=== PATIENT | female | born 1960 | race Caucasian/White ===

== ENCOUNTER 2018-06-21 07:14 | Emergency (ER) | payer MEDICAID ==
[~2018-06-21] VITALS: Ht 165.1 cm; Wt 81.7 kg
[~2018-06-21 07:14] MED LIST: ALPR.5 PO; CYCL10 PO; HYDCHL25 PO; HYDROCODONE/ACETAMIN; IBUP600 PO; META800 PO; SERT50 PO; Zofran Odt4 MG PO
[2018-06-21] MEDS ORDERED: META800 PO (10:00)
== END 2018-06-21 10:12 | disposition home or self-care (01) ==
LOC: ER 07:14
DX: M54.6 Pain in thoracic spine (principal); I10 Essential (primary) hypertension; F17.210 Nicotine dependence, cigarettes, uncomplicated; Z88.5 Allergy status to narcotic agent; W19.XXXA Unspecified fall, initial encounter
CPT/HCPCS: 70450; 72070; 82947; 96372; 99284-25; J1885

== ENCOUNTER 2024-12-06 14:19 | Inpatient (IN) | payer OTHER ==
[~2024-12-06] VITALS: Ht 162.6 cm; Wt 59.6 kg
[2024-12-06] VITALS (11 sets, daily range): BP systolic 96–133; BP diastolic 43–60
[~2024-12-06 14:19] MED LIST changes: +Atropine Sulfate 0.1 MG/ML 10ML SYR IV ONE; -BUPRENORPHINE HC8 MG SL; +EPINEPhrine HCl 1 MG/ML 1ML Amp IV ONE; -LEVOFLOXACIN PO; -PRENATAL TABLE1 EAC2 PO; -SUBOXONE 8 MG-1 EACH SL; -VISBIOME 112.51 EACH PO
[2024-12-06] MEDS ORDERED: Nitroglycerin 2 MG/20 ML BTL ONE (15:25)
[2024-12-06] MEDS ORDERED: Verapamil HCL 2.5 MG/ML 2ML Injection ONE (15:25)
[2024-12-06] MEDS ORDERED: NS 1,000 ML IV ONE ×3 (15:25→19:08)
[2024-12-06] MEDS ORDERED: Heparin Sodium 1000 Units/ML 10ML MDV ONE ×2 (15:25→15:34)
[2024-12-06] MEDS ORDERED: NS 250 ML IV ONE (15:25)
[2024-12-06] MEDS ORDERED: FentaNYL Citrate 50 MCG/ML 2 ML Injection ONE (15:27)
[2024-12-06] MEDS ORDERED: Midazolam HCl 1MG / ML 2ML Vial ONE (15:28)
[2024-12-06] MEDS ORDERED: Tirofiban HCL Monohydrate 3.75 MG/15 ML Vial ONE (15:34)
[2024-12-06] MEDS ORDERED: Phenylephrine HCl 100 MCG/ML-NS 10MLSYR (1MG/10ML) ONE (15:34)
[2024-12-06] MEDS ORDERED: Atropine Sulfate 0.1 MG/ML 10ML SYR ONE (15:34)
[2024-12-06 15:44] LABS: Albumin, Blood 3.2 g/dL (3.4-5.0); Albumin/Globulin Ratio 0.7 (0.8-1.8); Bilirubin, Total 2.5 mg/dL (0.1-1.0); Calcium, Blood 9.1 mg/dL (8.5-10.1); Creatinine, Blood 0.81 mg/dL (0.40-1.00); Globulin, Blood 4.5 g/dL (2.2-4.0); Potassium, Blood 4.7 mmol/L (3.5-5.5); Total Protein, Blood 7.7 g/dL (6.4-8.2)
[2024-12-06 15:45] LABS: BASOPHILS ABSOLUTE AUTO 0.06 K/mm3 (0.00-0.23); BASOPHILS PERCENT AUTO 0 % (0-2); EOSINOPHILS PERCENT AUTO 0 % (0-6); Hematocrit 32.9 % (33.0-51.0); IMMATURE GRAN ABSOLUTE AUTO 0.34 K/mm3 (0.00-0.10); IMMATURE GRAN PERCENT AUTO 2 % (0-1); LYMPHOCYTES ABSOLUTE AUTO 0.98 K/mm3 (0.84-5.20); LYMPHOCYTES PERCENT AUTO 5 % (21-46); MONOCYTES ABSOLUTE AUTO 0.44 K/mm3 (0.16-1.47); MONOCYTES PERCENT AUTO 2 % (4-13); Mean Corpuscular HGB 33.6 pg (26.0-34.0); Mean Corpuscular Volume 92 fL (80-100); Mean Platelet Volume 9.9 fL (9.1-12.4); NEUTROPHILS ABSOLUTE AUTO 17.78 K/mm3 (1.96-9.15); NEUTROPHILS PERCENT AUTO 91 % (41-73); Platelet Count 201 K/mm3 (150-400); RDW Coefficient Variation 13.7 % (11.7-14.2); RDW Standard Deviation 44.6 fL (35.1-46.3); Red Blood Cell Count 3.57 M/mm3 (3.80-5.20)
[2024-12-06 15:46] LABS: Mean Corpuscular HGB Conc 36.5 g/dL (31.5-36.5)
[2024-12-06] MEDS ORDERED: CefTRIAXone Sodium 1,000 MG in NS 50 ML IV ONE (15:55)
[2024-12-06] MEDS ORDERED: Acetaminophen 325 MG TABLET PO ONE (16:45)
[2024-12-06 16:50] LABS: International Normalized Ratio 1.22; Prothrombin Time Results 12.9 Sec (9.7-11.5)
[2024-12-06 17:10] LABS: Source, Urine Straight Cath
[2024-12-06 17:26] LABS: Appearance, Urine Hazy (Clear); Bilirubin, Urine Neg (Neg); Blood, Urine 1+ (Neg); Color, Urine Amber (P-Yellow); Glucose Qualitative, Urine Neg (Neg); Ketones, Urine Neg (Neg); Leukocyte Esterase, Urine 1+ (Neg); Nitrite, Urine Pos (Neg); Protein, Urine 2+ (Neg); Specific Gravity, Urine 1.015 (1.003-1.022); Urobilinogen, Urine 3+ (Normal)
[2024-12-06 17:32] LABS: Influenza A, PCR NEGATIVE (NEGATIVE); Influenza B, PCR NEGATIVE (NEGATIVE); Resp Syncytial Virus, PCR NEGATIVE (NEGATIVE); SARS-Cov-2 (COVID-19) PCR, MMC NEGATIVE (NEGATIVE)
[2024-12-06 17:36] LABS: Red Blood Cells, Urine 0-2 /hpf (0-2)
[2024-12-06 17:37] LABS: Bacteria Many /hpf; Squamous Epithelial Cells Rare /hpf (Few)
[2024-12-06] MEDS ORDERED: FLU VACC TS2024-25(6MOS UP)/PF 45 MCG/0.5 ML SYRINGE IM SCH (18:20)
[2024-12-06] MEDS ORDERED: LevoFLOXacin 750 MG/D5W 150ML 150 ML IV SCH (19:00)
[2024-12-06] MEDS ORDERED: Magnesium Sulf 2 GM/Water 50ML 50 ML IV ONE (19:15)
[2024-12-06] MEDS ORDERED: NS 1,000 ML IV SCH (19:20)
[2024-12-06 19:30] LABS: U Amphetamine Screen Not Detected; U Barbituate Screen Not Detected; U Benzodiazapine Screen Not Detected; U Buprenorphine Screen DETECTED; U Cannabinoids Screen Not Detected; U Cocaine Screen Not Detected; U Methadone Screen Not Detected; U Methamphetamine Screen Not Detected; U Opiates Screen Not Detected; U Oxycodone Screen Not Detected; U Phencyclidine Screen Not Detected
[2024-12-06] MEDS ORDERED: Dopamine/Dextrose 250 ML IV SCH (19:50)
[2024-12-06 20:53] LABS: Adenovirus Not Detected (NOT DETECT); Bordetella pertussis Not Detected (NOT DETECT); Chlamydophila pneumoniae Not Detected (NOT DETECT); Coronavirus 229E Not Detected (NOT DETECT); Coronavirus HKU1 Not Detected (NOT DETECT); Coronavirus NL63 Not Detected (NOT DETECT); Coronavirus OC43 Not Detected (NOT DETECT); Human Metapneumovirus Not Detected (NOT DETECT); Human Rhinovirus/Enterovirus Detected (NOT DETECT); Influenza A/2009-H1 Not Detected (NOT DETECT); Influenza A/H1 Not Detected (NOT DETECT); Influenza A/H3 Not Detected (NOT DETECT); Influenza B Not Detected (NOT DETECT); Mycoplasma pneumoniae Not Detected (NOT DETECT); Parainfluenza Virus 1 Not Detected (NOT DETECT); Parainfluenza Virus 2 Not Detected (NOT DETECT); Parainfluenza Virus 3 Not Detected (NOT DETECT); Parainfluenza Virus 4 Not Detected (NOT DETECT); Respiratory Syncytial Virus Not Detected (NOT DETECT); SARS-Cov-2 (COVID-19), BioFire Not Detected (NOT DETECT)
[2024-12-06] MEDS ORDERED: Lactobacil 2-S.Thermo-Bifido 1 1 Cap PO SCH (21:00)
[2024-12-06] MEDS ORDERED: buprenorphine HCL 8 MG TAB.SUBL SL ONE (21:05)
[2024-12-06] MEDS ORDERED: BUPRENORPHINE HC8 MG SL (21:18)
[2024-12-06 21:27] LABS: Base Excess Venous -1.6 mmol/L; Bicarbonate Venous 23.6 mmol/L (24.0-30.0); PCO2 Venous 33.1 mmHg (38-42); pH Blood Venous 7.44 (7.34-7.37)
--- NOTE | 2024-12-06 21:42 | NUR ---
ARRIVAL TO ICU: PT ARRIVED TO ICU BED 12 FROM ER AT 2041 VIA GURNEY. PT ALERT AND ORIENTED ALTHOUGH FALLS ASLEEP DURING CONVERSATION AND IS MILDLY CONFUSED AT TIMES. APPEARS TO BE REDIRECTABLE AT THIS TIME. PT ON 5L NC WITH SPO2 90. ENDORSES SOB WITH MOVEMENT. LUNGS COARSE T/O. RR 16-22. TRAFFIC RATE COMPUTER IN PLACE, SB WITH HR 50'S, OCCASIONALLY DROPS LOW 39 AT TIMES. DOPAMINE AT 5 MCG/KG/MIN TO MAINTAIN MAP >65. SEE FLOWSHEET FOR TITRATIONS. ENDORSES CHEST PAIN AT TIMES, PROVIDER AWARE. PT HAVING MODERATE AMOUNT OF GREEN EMESIS UPON ARRIVAL TO THE UNIT. HAS NOT YET VOIDED. NO BM. PIV TO RFA AND GISELLE. BED LOW AND LOCKED, CALL LIGHT IN REACH.
[2024-12-06 21:50] LABS: Bun/Creatinine Ratio 25.3 (12.0-20.0); Calcium, Blood 8.8 mg/dL (8.5-10.1); Creatinine, Blood 0.87 mg/dL (0.40-1.00); Potassium, Blood 3.6 mmol/L (3.5-5.5)
[2024-12-06] MEDS ORDERED: Metoclopramide HCl 5MG / ML 2ML Vial IV PRN (21:55)
[2024-12-07] VITALS (76 sets, daily range): BP systolic 87–162; BP diastolic 46–99
--- NOTE | 2024-12-07 04:09 | NUR ---
UPDATE: DR. WINSTON AT BEDSIDE FOR CENTRAL LINE INSERTION. PT TOLERATED WELL. CENTRAL LINE TO RIJ PATENT, X-RAY CONFIRMATION BY DR. WINSTON, OKAY TO USE. PT HAVING INCREASED ECTOPY, DR. WINSTON AWARE. PT C/O CHEST PAIN AND FEELING LIKE HER "HEART IS GOING TO BEAT OUT OF HER CHEST". DR. WINSTON GAVE VERBAL ORDER TO CHANGE DOPAMINE TO LEVOPHED. AWAITING LEVOPHED FROM PHARMACY.
[2024-12-07 04:14] LABS: Albumin, Blood 2.8 g/dL (3.4-5.0); Albumin/Globulin Ratio 0.7 (0.8-1.8); Bilirubin, Total 1.7 mg/dL (0.1-1.0); Bun/Creatinine Ratio 31.9 (12.0-20.0); Calcium, Blood 8.9 mg/dL (8.5-10.1); Creatinine, Blood 0.69 mg/dL (0.40-1.00); Globulin, Blood 4.2 g/dL (2.2-4.0); Magnesium, Blood 2.3 mg/dL (1.6-2.4); Potassium, Blood 4.2 mmol/L (3.5-5.5)
[2024-12-07 04:15] LABS: Hematocrit 31.4 % (33.0-51.0); Hemoglobin 10.9 g/dL (11.5-16.0); Mean Corpuscular HGB 31.6 pg (26.0-34.0); Mean Corpuscular HGB Conc 34.7 g/dL (31.5-36.5); Mean Corpuscular Volume 91 fL (80-100); Mean Platelet Volume 9.7 fL (9.1-12.4); Platelet Count 189 K/mm3 (150-400); RDW Coefficient Variation 13.3 % (11.7-14.2); RDW Standard Deviation 44.5 fL (35.1-46.3); Red Blood Cell Count 3.45 M/mm3 (3.80-5.20); White Blood Cell Count 22.47 K/mm3 (4.00-11.30)
[2024-12-07 04:21] LABS: BAND PERCENT MAN 37 % (0-8); BASOPHILS PERCENT MAN 0 % (0-2); EOSINOPHILS PERCENT MAN 0 % (0-6); LYMPHOCYTES ABSOLUTE MAN 0.44 K/mm3 (0.84-5.20); LYMPHOCYTES PERCENT MAN 2 % (21-46); METAMYELOCYTE ABSOLUTE MAN 0.22 K/mm3 (0.00-0.00); METAMYELOCYTE PERCENT MAN 1 % (0-0); MONOCYTES ABSOLUTE MAN 0.67 K/mm3 (0.16-1.47); MONOCYTES PERCENT MAN 3 % (4-13); NEUTROPHILS ABSOLUTE MAN 21.12 K/mm3 (1.96-9.15); SEG NEUTROPHILS PERCENT MAN 57 % (41-73); TOTAL CELLS COUNTED 100
[2024-12-07] MEDS ORDERED: buprenorphine HCL 8 MG TAB.SUBL SL ONE (05:00)
[2024-12-07] MEDS ORDERED: Atropine Sulfate 0.1 MG/ML 10ML SYR IV ONE (05:15)
--- NOTE | 2024-12-07 05:45 | NUR ---
SHIFT SUMMARY: PT ALERT AND ORIENTED ALTHOUGH CONFUSED AT TIMES. PT REPEATEDLY STATING SHE WANTS TO LEAVE. PT EDUCATED ON WHY SHE NEEDS TO BE HERE. AGREEABLE TO STAYING AT THIS TIME. PT VERY ANXIOUS AT TIMES. REMAINS ON 5L NC WITH SPO2 88-94%. DENIES SOB. DOPAMINE TURNED OFF AND LEVOPHED STARTED TO MAINTAIN MAP >65. SEE FLOWSHEET FOR TITRATIONS. PT STATES SHE FEELS LIKE HER HEART IS GOING TO BEAT OUT OF HER CHEST. HOSPITALIST AWARE. PT GIVEN ATROPINE FOR HR IN THE 30'S. DISCHARGE RN IN PLACE, SR/SB/GALLO WITH HR RANGING FROM 32-100. PT ABLE TO VOID THIS AM ON THE COMMODE. VOIDING DARK URINE. NO BM THIS SHIFT. CENTRAL LINE TO [facility] PATENT. PT TOLERATING ICE CHIPS. NO C/O N/V THIS AM. BED LOW AND LOCKED.
--- NOTE | 2024-12-07 07:00 | NUR ---
ASSUMPTION OF CARE PT RECEIVING LEVOPHED 5MCG/MIN. SHE IS ON 5L NC WITH SPO2 >93%. PT WAKENS EASILY TO VERBAL STIMULI. SINUS ON MONITOR WITH RATE BETWEEN 50S-70S. BED IN LOW POSITION, CALL LIGHT WITHIN REACH.
[2024-12-07] MEDS ORDERED: Enoxaparin 40 MG/0.4 ML SYR SC SCH (09:00)
[2024-12-07] MEDS ORDERED: SUBOXONE 8 MG-1 EACH SL (11:57)
[2024-12-07] MEDS ORDERED: PRENATAL TABLE1 EAC2 PO (12:01)
--- NOTE | 2024-12-07 13:55 | NUR ---
UPDATE LEVOPHED OFF SINCE 924. MAP HAS REMAINED >65. HR VARIES BETWEEN 50S-70S. SHE DENIES CP. SHE REMAINS ALERT AND ORIENTED. SHE PARTICIPATES IN CONVERSATION AND ASSISTS WITH ADLS ABLE. SHE IS ON 5L NC WITH SPO2 >93%. OCCASIONAL COUGH. FINE CRACKLES WITH EXP WHEEZE. SHE DENIES SOB. SHE HAS TOLERATED PO FLUIDS AND MEALS WELL. SHE HAS USED THE BSC TWICE TO VOID WITH 800ML OUTPUT . URINE IS DARK RUPERT WITH FOUL ODOR. AFEBRILE THROUGHOUT THE SHIFT. RIJ CENTRAL LINE REMOVED, DRESSING C/D/I. PT STS SHE TAKES SUBOXONE AND LEXAPRO AT HOME. HOME MED LIST VERIFIED AND HOSPITALIST NOTIFIED. BED IN LOW POSITION, PT LYING SUPINE, CALL LIGHT WTIHIN REACH.
[2024-12-07] MEDS ORDERED: LevoFLOXacin 750 MG Tab PO SCH (16:00)
--- NOTE | 2024-12-07 17:42 | NUR ---
SHIFT SUMMARY PT REMAINS ALERT AND ORIENTED. PT ANXIOUS AT TIMES. EXPRESSES CONCERN REGARDING HER PETS, GROWN CHILDREN AND HER CAR. PT STS SHE WOULD LIKE TO LEAVE THE HOSPITAL TONIGHT. ENCOURAGED TO STAY AND PT AGREEABLE AT THIS TIME. PT ASKS ABOUT SUBOXONE AND LEXAPRO. PER PROVIDER, MAY RESTART MEDS TOMORROW IF BP STABLE OVERNIGHT. PT AGREEABLE. HR VARIES BETWEEN 50S-70S. MAP >65. LEVOPHED OFF THIS AM AND MIDODRINE STARTED THIS EVENING. PT STS SHE HAS A FAMILY HISTORY OF HYPOTENSION AND BRADYCARDIA. SHE IS ON RA. SHE DENIES SOB. CONTINUES TO HAVE A NONPRODUCTIVE COUGH. SHE REPORTS DECREASED APPETITE BUT DID EAT PORTIONS OF MEALS. 1 BM THIS SHIFT. PT ABLE TO VOID THROUGHOUT THE DAY. BED IN LOW POSITION, CALL LIGHT WITHIN REACH.
[2024-12-07] MEDS ORDERED: Midodrine 5 MG Tab PO SCH (18:00)
[2024-12-07] MEDS ORDERED: LevoFLOXacin 750 MG/D5W 150ML 150 ML IV SCH (21:00)
--- NOTE | 2024-12-07 21:07 | NUR ---
ASSUMED CARE OF THIS PT AT 1900. PT WAS SITTING UP IN BED DURING BEDSIDE SHIFT REPORT, ADDED INFORMATION TO REPORT. SHE TRANSFERED OUT OF ICU AND IS HOPEFUL TO GO HOME TOMORROW. SHE IS A+O X4, COOPERATIVE W/ CARE AND ABLE TO MAKE HER NEEDS KNOWN. PT IS CURRENTLY SITTING UP IN BED PLAYING A GAME ON HER PHONE. BED IN LOWEST POSTIONS, CALL LIGHT IN REACH.
[2024-12-08] VITALS: BP 121/65
[2024-12-08 02:00] VITALS: BP 134/71
[2024-12-08 05:02] LABS: Bun/Creatinine Ratio 27.5 (12.0-20.0); Calcium, Blood 9.5 mg/dL (8.5-10.1); Creatinine, Blood 0.84 mg/dL (0.40-1.00); Potassium, Blood 4.1 mmol/L (3.5-5.5)
--- NOTE | 2024-12-08 05:19 | NUR ---
SHIFT SUMMARY PT IS A+O X4, ABLE TO MAKE NEEDS KNOWN, REPOSTIONS SELF IN BED. BP REMAINS STABLE THIS SHIFT. PT IS ON RA SATTING AT >94%. AFEBRILE. ON TELE SINUS JAMESON, WHILE SLEEPING PT WAS SHOWING SINUS ARRHYTHMIA, OPON ASSESSMENT OF THE PT SHE WAS RESTING COMFORTABLY IN BED. THIS RN AWOKE THE PT AND SHE SAID SHE FELT "FINE". PT DENIES CHEST PAIN/PRESSURE OR PAIN OF ANY OTHER KIND. PT DID NOT VOID DURING FIRST HALF OF THE SHIFT THIS RN REQUESTED SHE TRY AND GO, SHE WAS ABLE TO VOID 500mls. PT DRANK AROUND 200mls. DRESSING REMAINS IN PLACE WHERE CENTRAL LINE WAS REMOVED C/D/I. BED IN LOWEST POSTION, CALL LIGHT IN REACH. WILL CONTINUE TO TREAT AND REPORT TO ONCOMING RN.
[2024-12-08 05:44] LABS: BASOPHILS ABSOLUTE AUTO 0.03 K/mm3 (0.00-0.23); BASOPHILS PERCENT AUTO 0 % (0-2); EOSINOPHILS ABSOLUTE AUTO 0.05 K/mm3 (0.00-0.68); EOSINOPHILS PERCENT AUTO 0 % (0-6); Hematocrit 30.3 % (33.0-51.0); Hemoglobin 10.6 g/dL (11.5-16.0); IMMATURE GRAN ABSOLUTE AUTO 0.07 K/mm3 (0.00-0.10); IMMATURE GRAN PERCENT AUTO 1 % (0-1); LYMPHOCYTES ABSOLUTE AUTO 1.24 K/mm3 (0.84-5.20); LYMPHOCYTES PERCENT AUTO 9 % (21-46); MONOCYTES ABSOLUTE AUTO 0.48 K/mm3 (0.16-1.47); MONOCYTES PERCENT AUTO 4 % (4-13); Mean Corpuscular HGB 31.3 pg (26.0-34.0); Mean Corpuscular Volume 89 fL (80-100); Mean Platelet Volume 10.3 fL (9.1-12.4); NEUTROPHILS ABSOLUTE AUTO 11.76 K/mm3 (1.96-9.15); NEUTROPHILS PERCENT AUTO 86 % (41-73); Platelet Count 188 K/mm3 (150-400); RDW Coefficient Variation 13.4 % (11.7-14.2); RDW Standard Deviation 43.8 fL (35.1-46.3); Red Blood Cell Count 3.39 M/mm3 (3.80-5.20); White Blood Cell Count 13.63 K/mm3 (4.00-11.30)
[2024-12-08 07:36] VITALS: BP 121/61
[2024-12-08] MEDS ORDERED: LEVOFLOXACIN PO (09:32)
[2024-12-08] MEDS ORDERED: VISBIOME 112.51 EACH PO (09:32)
--- NOTE | 2024-12-08 10:10 | NUR ---
PT DISCHARGED AT 0950. DISCHARGE INSTRUCTIONS GIVEN VERBALLY AND IN WRITING. IV'S REMOVED AND DRESSED WITH GAUZE AND COBAN. PRESCRIPTIONS FAXED TO PHARMACY. PT WALKED INDEPENDENTLY TO EXIT ACCOMPANIED BY FAMILY MEMBER.
== END 2024-12-08 10:14 | disposition home or self-care (01) | DRG 871 ==
LOC: ER 14:19 → ICUE 18:18 → ERHOLD 18:18 → PCU 18:18 → ICUE 20:30 → PCU 12-07 18:49
PROVIDERS: Emergency Medicine; Family Medicine; Nurse Practitioner Acute Care; ADMIT Student in an Organized Health Care Education/Training Program
PROC: 02HV33Z Insertion of Infusion Device into Superior Vena Cava, Percutaneous Approach (ICD-10-PCS; 2024-12-06)
PROC: 3E03329 Introduction of Other Anti-infective into Peripheral Vein, Percutaneous Approach (ICD-10-PCS; 2024-12-06)
PROC: 3E043XZ Introduction of Vasopressor into Central Vein, Percutaneous Approach (ICD-10-PCS; principal; 2024-12-07)
DX: A41.51 Sepsis due to Escherichia coli [E. coli] (principal); I50.31 Acute diastolic (congestive) heart failure; J96.01 Acute respiratory failure with hypoxia; J18.9 Pneumonia, unspecified organism; R65.21 Severe sepsis with septic shock; N39.0 Urinary tract infection, site not specified; G61.0 Guillain-Barre syndrome; I11.0 Hypertensive heart disease with heart failure; F17.210 Nicotine dependence, cigarettes, uncomplicated; Z85.3 Personal history of malignant neoplasm of breast; Z79.899 Other long term (current) drug therapy; Z88.0 Allergy status to penicillin; Z88.8 Allergy status to other drugs, medicaments and biological substances; Z88.5 Allergy status to narcotic agent
CPT/HCPCS: 0202U; 0241U; 36415; 36556; 51701; 71045; 80048; 80053; 81001; 82803; 82947; 83605; 83735; 83880; 84145; 84443; 84484; 85025; 85610; 85730; 87077; 87086; 87186; 93005; 93010; 93306; 94762; 96365; 99285-25; A9270; C1751; J0171; J0461; J0571; J0696; J1265; J1644; J1650; J1956; J2250; J2371; J3010; J3246; J3475; J7030; J7050; J7060; P9612

== ENCOUNTER → 2024-12-06 | Outpatient (CLI) | payer OTHER ==
[~2024-12-06] MED LIST changes: +Ativan1 MG PO; +BUPRENORPHINE HC8 MG SL; +CEPH500 PO; +Cyclobenzaprine5 MG PO; +ESCI20 PO; +FUROSEMIDE20 MG PO; +HYDHCL25 PO; +LEVOFLOXACIN PO; +MELO7.5 PO; +POTA10T PO; +PRENATAL TABLE1 EAC2 PO; +SUBOXONE 8 MG-1 EACH SL; +TRAZ50 PO; +VISBIOME 112.51 EACH PO
== END | disposition home or self-care (01) ==
LOC: LAB 12:38 → LAB SHORT 12:38
DX: N39.0 Urinary tract infection, site not specified (principal)
CPT/HCPCS: 87077; 87086; 87186

== ENCOUNTER 2025-01-04 17:23 | Emergency (ER) | payer OTHER ==
[~2025-01-04] VITALS: Ht 165.1 cm; Wt 54.4 kg
[~2025-01-04 17:23] MED LIST changes: -Atropine Sulfate 0.1 MG/ML 10ML SYR IV ONE; +BUPRENORPHINE HC8 MG SL; -EPINEPhrine HCl 1 MG/ML 1ML Amp IV ONE; +LEVOFLOXACIN PO; +PRENATAL TABLE1 EAC2 PO; +SUBOXONE 8 MG-1 EACH SL; +VISBIOME 112.51 EACH PO
[2025-01-04 19:24] VITALS: BP 126/54
== END 2025-01-04 19:39 | disposition home or self-care (01) ==
LOC: ER 17:23
DX: R94.31 Abnormal electrocardiogram [ECG] [EKG] (principal); I10 Essential (primary) hypertension; F17.210 Nicotine dependence, cigarettes, uncomplicated; Z79.899 Other long term (current) drug therapy; Z88.0 Allergy status to penicillin; Z88.5 Allergy status to narcotic agent
CPT/HCPCS: 93005; 93010; 99283-25

== ENCOUNTER 2025-01-13 09:13 | Day surgery (SDC) | payer OTHER ==
[~2025-01-13] VITALS: Ht 162.6 cm; Wt 58.0 kg
[2025-01-13 10:24] VITALS: BP 118/62
[2025-01-13] MEDS ORDERED: NS 1,000 ML IV ONE (11:09)
[2025-01-13] MEDS ORDERED: Vancomycin HCl 1000 MG ADDvantage ONE (11:09)
[2025-01-13] MEDS ORDERED: Heparin Sodium 1000 Units/ML 10ML MDV ONE (11:09)
[2025-01-13] MEDS ORDERED: Midazolam HCl 1MG / ML 2ML Vial ONE (11:44)
[2025-01-13] MEDS ORDERED: CeFAZolin Sodium 2,000 MG VIAL ONE (11:44)
[2025-01-13] MEDS ORDERED: NS 500 ML IV ONE (11:45)
[2025-01-13] MEDS ORDERED: NS 50 ML IV ONE (11:45)
--- NOTE | 2025-01-13 13:44 | NUR ---
ARRIVED FROM CARDIAC NURSE PRACTITIONER, NEW PACEMAKER, CONNECTED TO MONITOR AND NOTED A-PACED TO P-WAVE, SINUS 60'S, BP STABLE AND OTHERWISE COMFORTABLE, RECLINED AND PLACED WARM BLANKETS, TRELL PETERSEN ALSO BROUGHT ICE PACK FOR SITE AND WATER. SITE INTACT, NO OOZING OR CONCERNS NOTED, WILL MONITOR, AND CXR ORDERED FOR 1430, SPOKE WITH RADIOLOGY EARLIER AND PROVIDER, PENDING FAMILY ARRIVAL.
[2025-01-13 13:45] VITALS: BP 112/66
[2025-01-13 14:00] VITALS: BP 117/62
[2025-01-13 14:15] VITALS: BP 114/81
[2025-01-13 14:30] VITALS: BP 117/70
--- NOTE | 2025-01-13 14:39 | NUR ---
TAKEN TO IMAGING AT PRESENT, NO CONCERNS PRIOR, SITE INTACT, VS REMAIN STABLE, HR REMAINS PACED 60-61.
--- NOTE | 2025-01-13 14:58 | NUR ---
PATIENT RETURNED FROM IMAGING, NOTIFIED DR. ARTIS PER FLEX RN. PENDING D/C OTHERWISE, REVIEWED D/C INSTRUCTIONS WITH PATIENT AND TO RESUME HOME MEDICATIONS WELL PACEMAKER AFTERCARE AND GIVEN EDUCATION WELL. ADVISED TO KEEP F/U APPOINTMENT, DAUGHTER ALSO PRESENT FOR DISCUSSION, NO ACUTE CONCERNS OTHERWISE.
[2025-01-13 15:00] VITALS: BP 115/79
--- NOTE | 2025-01-13 15:26 | NUR ---
PATIENT DRESSED, IV REMOVED, DISCUSSED HOME CARE AGAIN AND PACEMAKER DOCK REVEIEWED WITH PATIENT/DAUGHTER BY NICOLA MCCORD. AWAITING XR RESULT PER PROVIDER, AND PRESENTLY HILTON ARRIVED TO VALIDATE PACEMAKER APPOINTMENT WHICH HILTON CLARIFIED WAS PREIVOUSLY SCHEDULED, PATIENT AWARE AND ADDED TO D/C INSTRUCTIONS WELL. NO CONCERNS OTHERWISE. D/C PENDING PROVIDER.
--- NOTE | 2025-01-13 15:31 | NUR ---
PROVIDER ARRIVED, REITERATED D/C INSTRUCTIONS, PATIENT LEFT ABMULATORY AT 1530, ACCOMPANIED BY DAUGHTER.
== END 2025-01-13 15:30 | disposition home or self-care (01) ==
LOC: MHTC 09:13 → ORSCMMR 09:14 → MHTC 09:26
DX: I45.5 Other specified heart block (principal); R00.1 Bradycardia, unspecified; G61.0 Guillain-Barre syndrome; I50.31 Acute diastolic (congestive) heart failure; N61.1 Abscess of the breast and nipple; F17.210 Nicotine dependence, cigarettes, uncomplicated; Z88.0 Allergy status to penicillin
CPT/HCPCS: 33208; 71046; 99152; 99153; C1785; C1894; C1898; J0690; J1644; J2250; J3370; J7040; Q9967

== ENCOUNTER → 2025-01-19 | Outpatient (CLI) | payer OTHER | LOC: LAB 17:15 → LAB SHORT 17:15 | DX: R41.0 Disorientation, unspecified (principal) | CPT/HCPCS: 87086 ==

== ENCOUNTER → 2025-06-14 | Outpatient (CLI) | payer OTHER ==
[2025-06-14 17:41] LABS: Source, Urine Clean Catch
[2025-06-14 18:58] LABS: Bilirubin, Urine Neg (Neg); Color, Urine Yellow (P-Yellow); Glucose Qualitative, Urine Neg (Neg); Ketones, Urine Neg (Neg); Leukocyte Esterase, Urine 3+ (Neg); Protein, Urine 2+ (Neg); Specific Gravity, Urine 1.020 (1.003-1.022); Urobilinogen, Urine NORM (Normal)
== END ==
LOC: LAB 17:38 → LAB SHORT 17:38
PROVIDERS: Nurse Practitioner Family
DX: R30.0 Dysuria (principal)
CPT/HCPCS: 81001; 87086

== ENCOUNTER → 2025-07-01 | Outpatient (CLI) | payer OTHER | LOC: LAB 19:20 → LAB SHORT 19:20 | DX: R30.0 Dysuria (principal) | CPT/HCPCS: 87086 ==